=== PATIENT | female | born 1985 ===

== ENCOUNTER 2018-07-18 19:09 | Emergency (ER) | payer SELFPAY ==
[2018-07-18 19:25] VITALS: O2SAT 100
[2018-07-18 19:58] LABS: BASO % 0.4 % (0.0-2.0); EOS # 0.1 K/uL (0.0-0.7); EOS % 0.6 % (0.0-4.0); HEMOGLOBIN 13.3 g/dL (11.0-16.0); LYMPH # 2.2 K/uL (1.0-4.3); LYMPH % 16.2 % (20.0-40.0); MEAN CELL VOLUME 85.6 fL (81.0-99.0); MEAN CORPUSCULAR HEMOGLOBIN 29.3 pg (27.0-31.0); MEAN CORPUSCULAR HGB CONC 34.2 g/dL (33.0-37.0); MEAN PLATELET VOLUME 7.4 fL (7.2-11.7); MONO # 0.8 K/uL (0.0-0.8); MONO % 5.7 % (0.0-10.0); NEUT # 10.5 K/uL (1.8-7.0); NEUT % 77.1 % (50.0-75.0); RBC 4.55 Mil/uL (3.80-5.20); RED CELL DISTRIBUTION WIDTH 12.8 % (11.5-14.5); WHITE BLOOD COUNT 13.6 K/uL (4.8-10.8)
[2018-07-18] MEDS ORDERED: Sodium Chloride 0.9% 1,000 ML IV ONE (20:02)
[2018-07-18 20:12] LABS: ALB/GLOB RATIO 1.4 (1.0-2.1); ALBUMIN 4.4 g/dL (3.5-5.0); ALT/SGPT 34 U/L (9-52); AST/SGOT 29 U/L (14-36); BLOOD UREA NITROGEN 12 mg/dL (7-17); CALCIUM 9.3 mg/dl (8.6-10.4); GFR NON-AFRICAN AMERICAN > 60; LIPASE 49 U/L (23-300)
[2018-07-18 20:15] LABS: HCG,QUALITATIVE URINE NEGATIVE (NEGATIVE)
[2018-07-18 20:18] LABS: SQUAMOUS EPITHIAL 10 /hpf (0-5); URINE BACTERIA OCC (<OCC); URINE BILIRUBIN NEGATIVE (NEGATIVE); URINE BLOOD 3+ (NEGATIVE); URINE CLARITY Hazy (Clear); URINE COLOR Yellow (YELLOW); URINE GLUCOSE (UA) NORMAL (Normal); URINE LEUKOCYTE ESTERASE NEG Leu/uL (Negative); URINE PROTEIN 1+ mg/dL (NEGATIVE); URINE UROBILINOGEN NORMAL mg/dL (0.2-1.0)
--- NOTE | 2018-07-18 21:47 | C.PDOC ---
History Of Present Illness 32 year old female presents to the ED c/o LLQ abdominal pain radiating to her back that started this morning. Patient reports her pain has been constant associated with nausea. Patient reports she never had symptoms before and has no PMHx. Patient denies fever, chills, vomit, diarrhea, dysuria, hematuria, cough, CP, SOB. Time Seen by Provider: 07/18/18 19:38 Chief Complaint (Nursing): Abdominal Pain History Per: Patient History/Exam Limitations: no limitations Onset/Duration Of Symptoms: Hrs Current Symptoms Are (Timing): Still Present Location Of Pain/Discomfort: LLQ Radiation Of Pain To:: Back Quality Of Discomfort: "Pain" Associated Symptoms: Nausea. denies: Vomiting, Diarrhea, Urinary Symptoms Recent travel outside of the [place]: No Additional History Per: Patient Abnormal Vaginal Bleeding: No Past Medical History Reviewed: Historical Data, Nursing Documentation, Vital Signs Vital Signs: Last Vital Signs Temp 98.6 F 07/18/18 19:16 Pulse 66 07/18/18 19:16 Resp 18 07/18/18 19:16 BP 116/79 07/18/18 19:16 Pulse Ox 100 07/18/18 19:16 Primary Care Provider: FAMILY PROVIDER,NO - Medical History PMH: No Chronic Diseases Surgical History: No Surg Hx Family History: States: Unknown Family Hx - Social History Hx Alcohol Use: No Hx Substance Use: No - Immunization History Hx Tetanus Toxoid Vaccination: No Hx Influenza Vaccination: Yes (Dec 2017) Hx Pneumococcal Vaccination: No Review Of Systems Constitutional: Negative for: Fever, Chills Cardiovascular: Negative for: Chest Pain Respiratory: Negative for: Shortness of Breath Gastrointestinal: Positive for: Nausea, Abdominal Pain. Negative for: Vomiting Musculoskeletal: Positive for: Back Pain Neurological: Negative for: Weakness, Numbness, Headache Physical Exam - Physical Exam Appears: Non-toxic, In Acute Distress Skin: Normal Color, Warm, Dry Head: Atraumatic, Normacephalic Eye(s): bilateral: Normal Inspection Oral Mucosa: Moist Neck: Normal ROM, Supple Chest: Symmetrical Cardiovascular: Rhythm Regular Respiratory: Normal Breath Sounds, No Rales, No Rhonchi, No Wheezing Gastrointestinal/Abdominal: Soft, Tenderness (LLQ), No Guarding, No Rebound, Other (Negative McBurney's, Xavier's) Back: CVA Tenderness (left) Extremity: Normal ROM, No Tenderness, No Swelling Neurological/Psych: Oriented x3, Normal Speech, Normal Cognition Gait: Steady ED Course And Treatment - Laboratory Results Result Diagrams: 07/18/18 19:52 07/18/18 19:52 Lab Results: Total Bilirubin 0.3 mg/dL (0.2-1.3) 07/18/18 19:52 AST 29 U/L (14-36) 07/18/18 19:52 ALT 34 U/L (9-52) 07/18/18 19:52 Alkaline Phosphatase 71 U/L (38-126) 07/18/18 19:52 Total Protein 7.5 g/dL (6.3-8.3) 07/18/18:52 Albumin 4.4 g/dL (3.5-5.0) 07/18/18:52 Globulin 3.2 gm/dL (2.2-3.9) 07/18/18 19:52 Albumin/Globulin Ratio 1.4 (1.0-2.1) 07/18/18 19:52 Lipase 49 U/L (23-300) 07/18/18 19:52 Urine Color Yellow (YELLOW) 07/18/18 19:47 Urine Clarity Hazy (Clear) 07/18/18 19:47 Urine pH 6.0 (5.0-8.0) 07/18/18 19:47 Ur Specific Blach[place] 1.023 (1.003-1.030) 07/18/18 19:47 Urine Protein 1+ mg/dL (NEGATIVE) H 07/18/18 19:47 Urine Glucose (UA) Normal mg/dL (Normal) 07/18/18 19:47 Urine Ketones Negative mg/dL (NEGATIVE) 07/18/18 19:47 Urine Blood 3+ (NEGATIVE) H 07/18/18 19:47 Urine Nitrate Negative (NEGATIVE) 07/18/18 19:47 Urine Bilirubin Negative (NEGATIVE) 07/18/18 19:47 Urine Urobilinogen Normal mg/dL (0.2-1.0) 07/18/18 19:47 Ur Leukocyte Esterase Neg Carolina/uL (Negative) 07/18/18 19:47 Urine WBC (Auto) 2 /hpf (0-5) 07/18/18 19:47 Urine RBC (Auto) 1502 /hpf (0-3) H 07/18/18 19:47 Ur Squamous Epith Cells 10 /hpf (0-5) H 07/18/18 19:47 Urine Bacteria Occ (<OCC) H 07/18/18 19:47 Urine HCG, Qual Negative (NEGATIVE) 07/18/18 19:47 Urine HCG, Qual Negative (NEGATIVE) 07/18/18 19:47 O2 Sat by Pulse Oximetry: 100 (ON RA) Pulse Ox Interpretation: Normal - CT Scan/US CT abd/pelvis Other Rad Studies (CT/US): Read By Radiologist, Radiology Report Reviewed CT/US Interpretation: EXAM: CT Abdomen and Pelvis Without IV contrast. CLINICAL HISTORY: Left lower abd pain , and r/o kidney stone. TECHNIQUE: Axial computed tomography images of the abdomen and pelvis without intravenous contrast. CONTRAST: No IV contrast. COMPARISON: None provided. FINDINGS: LUNG BASES: The lung bases appear clear. No pleural effusions are seen. LIVER: Unremarkable. GALLBLADDER AND BILE DUCTS: The gallbladder appears within normal limits. No radioopaque gallstones are seen. No biliary ductal dilatation is evident. PANCREAS: Unremarkable. SPLEEN: Unremarkable. ADRENAL GLANDS: Unremarkable. KIDNEYS, URETERS, AND BLADDER: Both kidneys are normal in size and position. There is a 3.4 mm non-obstructing calculus seen in the posterior mid right renal pole. A 5.9 mm obstructing calculus is seen at the proximal left UVJ. There is moderate continuous left hydroureter noted and moderate left hydronephrosis identified. The urinary bladder appeared normal in size and configuration. STOMACH AND BOWEL: Unremarkable appearance of the stomach and bowel. No evidence of bowel obstruction. No evidence suggesting enteritis or colitis. APPENDIX: No evidence of acute appendicitis on CT examination. PERITONEUM: No free fluid. No free air. LYMPH NODES: No lymphadenopathy is evident. REPRODUCTIVE: Unremarkable as visualized. VASCULATURE: No evidence of abdominal aortic aneurysm. BONES: No aggressive appearing osseous lesion. No acute osseous pathology evident. IMPRESSION: 1. A 5.9 mm obstructing calculus is lodged at the proximal left UVJ. This creates associated moderate continuous left hydroureter and left hydronephrosis. 2. A 3.4 mm non- obstructing calculus is seen in the posterior mid right renal pole. . Electronically signed on July 19, 2018 12:18:17 AM EDT by: Jaz Weiss M.D., Certified by GREER, ALONZO, Neuroradiology. Progress Note: Plan: - Labs. - CT abd/pelvis. - IV fluids. - Toradol 30 mg IVP. - Lidocaine IVP. - UA Disposition Counseled Patient/Family Regarding: Studies Performed, Diagnosis, Need For Followup, Rx Given - Disposition Referrals: Jonah Irving MD [Staff Provider] - Disposition: HOME/ ROUTINE Disposition Time: 00:50 Condition: STABLE Additional Instructions: FOLLOW UP WITH UROLOGIST WITHIN 1 WEEK DRINK PLENTY OF WATER USE MEDICATIONS DIRECTED RETURN TO EMERGENCY ROOM IF YOUR SYMPTOMS BECOME WORSE SEGUIRSE CON EL UROLOGISTA EN RENÉE SEMANA BEBER ABUNDANTE AGUA UTILICE MEDICAMENTOS LUCILA SE DIRIGE VUELVA A LA JOSE DAVID DE EMERGENCIA SI DORA SNTOMAS SE HACEN PEOR Prescriptions: Hydrocodone/Acetaminophen [Hydrocodone-Acetamin 5-325 mg] 1 each PO Q6 PRN #15 tablet PRN Reason: PAIN Tamsulosin [Flomax] 0.4 mg PO DAILY #5 cap Instructions: Renal Colic (DC), Kidney Stones (DC) Forms: [employer] (Gabonese) Print Language: SOU[place]ORE[place] - Clinical Impression Clinical Impression: Kidney stone on left side, Renal colic on left side - Scribe Statement The provider has reviewed the documentation as recorded by the Scribe Charles Farley All medical record entries made by the Scribe were at my direction and personally dictated by me. I have reviewed the chart and agree that the record accurately reflects my personal performance of the history, physical exam, medical decision making, and the department course for this patient. I have also personally directed, reviewed, and agree with the discharge instructions and disposition.
[2018-07-18] MEDS ORDERED: Lidocaine 112 MG in Sodium Chloride 0.9% 100 ML IV STA (21:51)
[2018-07-18 22:03] VITALS: RESP 16; TEMP 98.8
[2018-07-19 00:59] VITALS: BP 121/70; PULSE 80
--- NOTE | 2018-07-19 11:27 | CT ---
Date of service: 07/18/2018 PROCEDURE: CT Abdomen and Pelvis. HISTORY: LLQ, L FLANK PAIN R/O KIDNEY STONE COMPARISON: None. TECHNIQUE: Contiguous axial images of the abdomen and pelvis performed without oral or intravenous contrast material.. Coronal and Sagittal reformats generated. Radiation dose: Total exam DLP = 489.32 mGy-cm. This CT exam was performed using one or more of the following dose reduction techniques: Automated exposure control, adjustment of the mA and/or kV according to patient size, and/or use of iterative reconstruction technique. FINDINGS: LOWER THORAX: Mild passive/dependent type atelectasis both posterior lower lung marmolejo. No effusion or basilar pneumothorax. Heart size is upper limits of normal. No significant pericardial effusion. LIVER: Unremarkable. No gross lesion or ductal dilatation. GALLBLADDER AND BILE DUCTS: Unremarkable. PANCREAS: Unremarkable. No mass. No ductal dilatation. SPLEEN: Unremarkable. No splenomegaly. ADRENALS: Unremarkable. KIDNEYS AND URETERS: There is an approximately 6.2 mm calculus in the left UVJ with moderate to significant left-sided hydronephrosis.. There also small approximately 3.5 mm nonobstructing calculus seen in the mid to lower pole collecting system right kidney. BLADDER: Grossly unremarkable. REPRODUCTIVE: Unremarkable. APPENDIX: Unremarkable. BOWEL: Unremarkable. No obstruction. No gross mural thickening. PERITONEUM: Unremarkable. No fluid collection. No free air. Small fat containing umbilical hernia. LYMPH NODES: Unremarkable. No enlarged lymph nodes. VASCULATURE: Unremarkable. No aortic aneurysm. No aortic atherosclerotic calcification or mural plaque present. BONES: No fracture or destructive lesion. OTHER FINDINGS: None. IMPRESSION: 6.2 mm obstructing calculus left UVJ with moderate to significant left-sided hydronephrosis. Small non obstructing calculus mid to lower pole collecting system right kidney.
== END 2018-07-19 00:59 | disposition home or self-care (01) ==
LOC: C.ER 19:09
DX: N13.2 Hydronephrosis with renal and ureteral calculous obstruction (principal)
CPT/HCPCS: 74176; 80053; 81001; 83690; 84703; 85025; 96361; 96374; 99284; J1885; J2001; J7030